=== PATIENT | female | born 1955 ===

== ENCOUNTER 2018-04-16 14:55 | Outpatient (CLI) | payer OTHER ==
[~2018-04-16] VITALS: Ht 154.9 cm; Wt 62.6 kg
== END 2018-04-16 15:10 | disposition home or self-care (01) ==
LOC: OFIC 805 14:55
DX: H91.8X2 Other specified hearing loss, left ear (principal); H92.02 Otalgia, left ear

== ENCOUNTER 2018-04-28 10:27 | Outpatient (CLI) | payer OTHER ==
[~2018-04-28] VITALS: Ht 152.4 cm; Wt 62.6 kg
== END 2018-04-28 10:40 | disposition home or self-care (01) ==
LOC: OFIC 805 10:27
DX: H91.8X2 Other specified hearing loss, left ear (principal)

== ENCOUNTER 2018-05-28 13:52 | Outpatient (CLI) | payer OTHER ==
[~2018-05-28] VITALS: Ht 152.4 cm; Wt 62.6 kg
== END 2018-05-28 14:10 | disposition home or self-care (01) ==
LOC: OFIC 805 13:52
DX: H91.8X2 Other specified hearing loss, left ear (principal); H92.02 Otalgia, left ear; D33.3 Benign neoplasm of cranial nerves

== ENCOUNTER 2018-06-29 10:05 | Outpatient (CLI) | payer OTHER | END 2018-06-29 10:12 | disposition home or self-care (01) | LOC: EKG 10:05 → LAB 10:05 → EKG 10:12 | DX: D33.3 Benign neoplasm of cranial nerves (principal); Z01.810 Encounter for preprocedural cardiovascular examination ==